=== PATIENT | female | born 1930 | race Caucasian/White ===

== ENCOUNTER 2016-11-13 22:15 | Emergency (ER) | payer OTHER, MEDICAID ==
[2016-11-13] MEDS ORDERED: fentaNYL 100 MCG/2 ML INJ IVP ONE ×2 (22:16→22:28)
--- NOTE | 2016-11-13 22:24 | EDPHY ---
H & P - Medical/Surgical History Hx Asthma: No Hx Chronic Respiratory Disease: No Hx Diabetes: No Hx Cardiac Disease: No Hx Renal Disease: No Hx Cirrhosis: No Hx Alcoholism: No Hx HIV/AIDS: No Hx Splenectomy or Spleen Trauma: No Other PMH: depression, right hip dislocates, dementia, HTN, arthritis, restless leg syndrome, history of falling. - Social History Smoking Status: Never smoked Time Seen by Provider: 11/13/16 22:16 HPI/ROS: CHIEF COMPLAINT: Suspected right hip dislocation HISTORY OF PRESENT ILLNESS: 86-year-old female arrives by ambulance from [facility] for suspected right hip dislocation. History of recurrent hip dislocation. Was bending over her wheelchair and felt it dislocate. No direct trauma or fall. No paresthesia. REVIEW OF SYSTEMS: A ten point review of systems was performed and is negative with the exception of the items mentioned in the HPI PAST MEDICAL & SURGICAL HISTORY: Recurrent hip dislocation SOCIAL HISTORY:lives at [facility] PHYSICAL EXAM (Prior to examination, patient consented to physical exam, hands were washed and my usual and customary physical exam procedures followed) 1) GENERAL: Well-developed, well-nourished, alert and oriented. Appears to be in no acute distress. 2) HEAD: Normocephalic, atraumatic 3) HEENT: Pupils equal, round, reactive to light bilaterally. Sclera anicteric. 4) NECK: Full range of motion, no meningeal signs. 5) LUNGS: Clear auscultation bilaterally. 6) HEART: Regular rate and rhythm. 7) ABDOMEN: No guarding, no rebound, no focal tenderness, 8) MUSCULOSKELETAL: right lower extremity: Shortened, DP PT pulses present and brisk.. (Sylvia,Alexus Conchis) Constitutional: Initial Vital Signs Temperature (C) 37.2 C 11/13/16 22:19 Heart Rate 67 11/13/16 22:19 Respiratory Rate 18 11/13/16 22:19 Blood Pressure 182/78 H 11/13/16 22:19 O2 Sat (%) 99 11/13/16 22:19 O2 Delivery Mode [Procedural Room Air 4th Post Procedure 3rd] O2 Delivery Mode [Procedural Room Air 3rd] O2 Delivery Mode [Post Non-Rebreather Mask Procedure 2nd] O2 Delivery Mode [Post Non-Rebreather Mask Procedure 1st] O2 Delivery Mode [Procedural Non-Rebreather Mask 1st] O2 Delivery Mode [.Immediate Non-Rebreather Mask Pre-Procedure] O2 Delivery Mode Room Air O2 (L/minute) [Post Procedure 15 2nd] O2 (L/minute) [Post Procedure 15 1st] O2 (L/minute) [Procedural 1st] 15 O2 (L/minute) [.Immediate Pre- 15 Procedure] O2 (L/minute) 2 Allergies/Adverse Reactions: No Known Allergies Allergy (Verified 09/14/16 05:47) Home Medications: Medication Instructions Recorded Acetaminophen [Tylenol 325mg (*)] 650 mg PO Q6 PRN 12/16/15 Cholecalciferol Vit D3 [Vitamin D3 5,000 unit PO Q7D 12/16/15 (*)] Folic Acid 0.8 mg PO DAILY 12/16/15 Magnesium Hydroxide [Milk of 30 ml PO DAILY PRN 12/16/15 Magnesia (*)] PARoxetine HCL [Paxil 20mg (*)] 20 mg PO DAILY 12/16/15 Sennosides/Docusate Sodium 1 tab PO BID 12/16/15 [Senokot-S] oxyCODONE IR [Oxycodone Ir (*)] 2.5 - 5 mg PO Q4 PRN 12/16/15 Fludrocortisone Acetate [Florinef] 0.1 mg PO DAILY #30 tab 12/20/15 Midodrine HCl [Proamatine/Midodrin] 5 mg PO TID@0800,1200,1600 #90 tab 12/20/15 Cephalexin [Keflex] 500 mg PO TID #15 cap 09/14/16 Medical Decision Making Procedures: Procedure: Dislocation reduction. Procedural sedation provided by with 45 mg of propofol fall. The dislocation of the right hip was reduced using traction counter traction technique without complications. Post reduction the patient's neurovascular exam is normal. Post reduction x-ray demonstrates reduction of the joint to the anatomic position. The procedure was performed by Dr. Grande . (Alexus Ward) Other Provider: Independent physician documentation I evaluated and participated in the management of the patient. I also evaluated the patient independently. My co-signature indicates that I have reviewed this chart and I agree with the findings and plan of care as documented. My personal H&P findings include: The patient presents to the ED with a recurrent right hip dislocation. She denies numbness or weakness. She denies additional complaints. She has a history of multiple hip dislocations in the past. PHYSICAL EXAM General Appearance: Alert, no distress Eyes: Pupils equal and round no pallor or injection ENT, Mouth: Mucous membranes moist Respiratory: There are no retractions, lungs are clear to auscultation Cardiovascular: Regular rate and rhythm Gastrointestinal: Abdomen is soft and nontender, no masses, bowel sounds normal Neurological: A&O, normal motor function, normal sensory exam, normal cranial nerves Skin: Warm and dry, no rashes Musculoskeletal: Neck is supple nontender Extremities: Deformity and tenderness noted to the right prosthetic hip Procedure: Conscious sedation. Indication: Prosthetic hip dislocation The patient is an appropriate candidate to tolerate procedural sedation. The patient's vital signs and mental status are appropriate. The risks, benefits and alternatives of the sedation were discussed with the patient. The patient is ASA classification 1. The patient's Mallampati airway score was 1 and the patient did meet the 3-3-2 airway measurements. A time out was completed. The patient was sedated with 45 mg of propofol. The patient was monitored with continuous pulse oximetry, secured entrance monitor and end tidal CO2. There were no complications and no significant hypoxemia. I performed both the sedation and the procedure. The total time I spent at the bedside during the procedural sedation was 16 minutes. The patient was examined after the procedural sedation and has returned to their pre-sedation baseline with normal vital signs and a normal examination. Procedure: Dislocation reduction. The dislocation of the right prosthetic hip dislocation was reduced using counter traction technique without complications. Post reduction the patient's neurovascular exam is normal. Post reduction x-ray demonstrates reduction of the joint to the anatomic position. The procedure was performed by myself. Patient tolerated the procedure well. She will be discharged back to her assisted living facility. (Pedro Pablo Grande) - Data Points Medications Given: Discontinued Medications Fentanyl (Sublimaze) 50 mcg IVP EDNOW ONE Stop: 11/13/16 22:17 Last Admin: 11/13/16 22:20 Dose: 50 mcg Fentanyl (Sublimaze) 50 mcg IVP EDNOW ONE Stop: 11/13/16 22:29 Last Admin: 11/13/16 23:48 Dose: Not Given Propofol (Diprivan) 50 mg IVP EDNOW ONE Stop: 11/13/16 22:54 Last Admin: 11/13/16 23:47 Dose: 50 mg Departure - Departure Disposition: Home, Routine, Self-Care Clinical Impression: Recurrent dislocation of right hip Condition: Good Instructions: Hip Dislocation (ED) Referrals: Charity Bentley MD [Medical Doctor] - 5-7 days, call for appt.
[2016-11-13] MEDS ORDERED: PROPOFOL 200 MG/20 ML VIAL ONE (22:51)
[2016-11-13] MEDS ORDERED: PROPOFOL 200 MG/20 ML VIAL IVP ONE (22:53)
[2016-11-13] MEDS ORDERED: NS 500 ML IV SCH (23:00)
--- NOTE | 2016-11-13 23:52 | DX ---
Right hip, 2 views. History: Follow-up prosthesis dislocation. Comparison examination: September 29, 2016. Findings: Surgical features of bilateral hip arthroplasty are identified without dislocation of the p rosthesis on the right as has been present previously. Extensive lumbar spine instrumentation hardwar e is also noted. Impression: 1. Bilateral hip arthroplasties and prior lumbar spine surgery.
[2016-11-14 00:26] VITALS: BP 150/61; PULSE 62; RESP 14; TEMP 98.1; O2SAT 91
--- NOTE | 2016-11-14 08:44 | DX ---
Hip Technique: AP pelvis and frog-leg right hip. Clinical Indications: Pain Comparison: 09/29/2016 Findings: There is a recurrent superior posterior dislocation of the right hip replacement. The left hip replacement remains in anatomic alignment. No fracture is identified. Impression: Recurrent right posterior hip dislocation.
== END 2016-11-14 00:26 | disposition home or self-care (01) ==
LOC: EDUNIT#
PROC: 0SS9XZZ Reposition Right Hip Joint, External Approach (ICD-10-PCS; principal; 2016-11-13)
DX: M24.451 Recurrent dislocation, right hip (principal); I10 Essential (primary) hypertension
CPT/HCPCS: 27250; 73502; 99152; 99285; J2704; J3010

== ENCOUNTER 2017-03-25 13:48 | Emergency (ER) | payer OTHER, MEDICAID ==
--- NOTE | 2017-03-25 14:15 | EDPHY ---
H & P Stated Complaint: R hip pain post mechanical fall, slipped in shower Time Seen by Provider: 03/25/17 13:59 HPI/ROS: CHIEF COMPLAINT: Right hip pain and deformity following mechanical fall HISTORY OF PRESENT ILLNESS: The patient presents to the ED complaining of acute moderate to severe right hip pain and deformity following a mechanical fall. The patient reportedly slipped on a wet bathroom floor. The patient does have a history of multiple prior prosthetic hip dislocations. The patient has followed up with her regular orthopedic surgeon in [place]. The patient has declined revision surgery. Her last prosthetic hip dislocation was in December of this year. She reports this is her 14th dislocation of the prosthetic hip. She denies acute numbness or weakness. The patient did not strike her head or lose consciousness. She has no complaints of acute headache, neck pain, back pain or additional traumatic injury. The patient has been unable to ambulate since her accident. REVIEW OF SYSTEMS: A comprehensive 10 point review of systems is otherwise negative aside from elements mentioned in the history of present illness. Source: Patient Exam Limitations: No limitations - Personal History Current Tetanus/Diphtheria Vaccine: Unsure Current Tetanus Diphtheria and Acellular Pertussis (TDAP): Unsure - Medical/Surgical History Hx Asthma: No Hx Chronic Respiratory Disease: No Hx Diabetes: No Hx Cardiac Disease: No Hx Renal Disease: No Hx Cirrhosis: No Hx Alcoholism: No Hx HIV/AIDS: No Hx Splenectomy or Spleen Trauma: No Other PMH: depression, right hip dislocates, dementia, HTN, arthritis, restless leg syndrome, history of falling, orthostatic hypotension, arthropathy - Social History Smoking Status: Never smoked - Physical Exam Exam: General Appearance: Elderly female, no acute distress Eyes: Pupils equal and round no pallor or injection ENT, Mouth: Mucous membranes moist Respiratory: There are no retractions, lungs are clear to auscultation Cardiovascular: Regular rate and rhythm Gastrointestinal: Abdomen is soft and nontender, no masses, bowel sounds normal Neurological: GCS 15, 5/5 strength all 4 extremities, cranial nerves grossly intact Skin: Warm and dry, no rashes Musculoskeletal: Mild kyphosis present, no tenderness to palpation noted outside of the right hip Extremities: Right hip held in flexion in internal rotation Constitutional: Initial Vital Signs Temperature (C) 36.4 C 03/25/17 13:56 Heart Rate 76 03/25/17 13:56 Respiratory Rate 17 03/25/17 13:56 Blood Pressure 180/77 H 03/25/17 13:56 O2 Sat (%) 94 03/25/17 13:56 O2 Delivery Mode [Post Room Air Procedure 3rd] O2 Delivery Mode [Post Non-Rebreather Mask Procedure 2nd] O2 Delivery Mode [Post Non-Rebreather Mask Procedure 1st] O2 Delivery Mode [Procedural Non-Rebreather Mask 1st] O2 Delivery Mode Room Air O2 (L/minute) [Post Procedure 15 2nd] O2 (L/minute) [Post Procedure 15 1st] O2 (L/minute) [Procedural 1st] 15 O2 (L/minute) 15 Allergies/Adverse Reactions: No Known Allergies Allergy (Verified 03/25/17 13:53) Home Medications: Medication Instructions Recorded Acetaminophen [Tylenol 325mg (*)] 650 mg PO Q6 PRN 12/16/15 Folic Acid 0.8 mg PO DAILY 12/16/15 Magnesium Hydroxide [Milk of 30 ml PO DAILY PRN 12/16/15 Magnesia (*)] Sennosides/Docusate Sodium 1 tab PO BID 12/16/15 [Senokot-S] Fludrocortisone Acetate [Florinef] 0.1 mg PO DAILY #30 tab 12/20/15 Lexapro 03/25/17 Mirtazapine 03/25/17 Synthroid 03/25/17 Vitamin D3 03/25/17 Medical Decision Making - Diagnostics Imaging Results: Imaging Impressions Hip X-Ray 03/25/17 13:59 Impression: Dislocated right hip arthroplasty. Pelvis X-Ray 03/25/17 14:56 Impression: 1. Reduction in right hip arthroplasty dislocation. Procedures: Procedure: Conscious sedation. Indication: Reduction of prosthetic hip dislocation The patient is an appropriate candidate to tolerate procedural sedation. The patient's vital signs and mental status are appropriate. The risks, benefits and alternatives of the sedation were discussed with the patient. The patient is ASA classification 1. The patient's Mallampati airway score was 1 and the patient did meet the 3-3-2 airway measurements. A time out was completed. The patient was sedated with 30 mg of propofol. The patient was monitored with continuous pulse oximetry, playground monitor and end tidal CO2. There were no complications and no significant hypoxemia. I performed both the sedation and the procedure. The total time I spent at the bedside during the procedural sedation was 15 minutes. The patient was examined after the procedural sedation and has returned to their pre-sedation baseline with normal vital signs and a normal examination. Procedure: Dislocation reduction. Indication: Dislocation The the right prosthetic hip dislocation was reduced in the usual fashion without complications. Post reduction the patient's neurovascular exam is normal. Post reduction x-ray demonstrates reduction of the joint to the anatomic position. The procedure was performed by myself. ED Course/Re-evaluation: The patient presents to the ED with a recurrent right prosthetic hip dislocation. The patient was verbally consented to undergo conscious sedation with propofol. I was able to reduce the hip without complication. 3:30 p.m.: I have reviewed the patient's post reduction x-ray and note reduction of the right prosthetic hip dislocation. The patient continues to be neurologically intact. She has recovered from her conscious sedation without any issues. The patient will be discharged home. She is given customary aftercare instructions and return precautions. Differential Diagnosis: Differential diagnosis considered includes periprosthetic fracture, prosthetic hip dislocation, pelvic fracture, neurovascular injury - Data Points Medications Given: Discontinued Medications Propofol (Diprivan) 30 mg IVP EDNOW ONE Stop: 03/25/17 15:15 Last Admin: 03/25/17 14:53 Dose: 30 mg Departure - Departure Disposition: Home, Routine, Self-Care Clinical Impression: Dislocation of internal right hip prosthesis Qualifiers: Encounter type: initial encounter Qualified Code(s): T84.020A - Dislocation of internal right hip prosthesis, initial encounter Condition: Good Instructions: Hip Dislocation (ED) Additional Instructions: 1. Please take Tylenol as needed for pain. 2. Please return to the ED for severe pain, numbness, weakness, recurrent dislocation or other concerns. Referrals: TRUDI MELENDEZ [Primary Care Provider] - As per Instructions
[2017-03-25] MEDS ORDERED: PROPOFOL 200 MG/20 ML VIAL ONE (14:43)
[2017-03-25] MEDS ORDERED: PROPOFOL 200 MG/20 ML VIAL IVP ONE (15:14)
[2017-03-25 16:11] VITALS: BP 155/74; PULSE 67; RESP 16; TEMP 97.9; O2SAT 96
== END 2017-03-25 16:11 | disposition home or self-care (01) ==
LOC: EDUNIT#
PROC: 0SS9XZZ Reposition Right Hip Joint, External Approach (ICD-10-PCS; principal; 2017-03-25)
DX: T84.020A Dislocation of internal right hip prosthesis, initial encounter (principal); I10 Essential (primary) hypertension; W01.0XXA Fall on same level from slipping, tripping and stumbling without subsequent striking against object, initial encounter; Y79.2 Prosthetic and other implants, materials and accessory orthopedic devices associated with adverse incidents; Y92.002 Bathroom of unspecified non-institutional (private) residence as the place of occurrence of the external cause
CPT/HCPCS: 27265; 72170; 73502; 99152; 99285; J2704

== ENCOUNTER 2017-09-12 10:50 | Emergency (ER) | payer OTHER, MEDICAID ==
[2017-09-12 11:01] VITALS: RESP 16; TEMP 98.2
[2017-09-12] MEDS ORDERED: fentaNYL 100 MCG/2 ML INJ ONE (11:39)
[2017-09-12] MEDS ORDERED: fentaNYL 100 MCG/2 ML INJ IVP ONE (11:40)
[2017-09-12] MEDS ORDERED: KETAMINE 100 MG/10 ML SYR ONE (12:24)
[2017-09-12] MEDS ORDERED: PROPOFOL 200 MG/20 ML VIAL ONE (12:24)
--- NOTE | 2017-09-12 12:28 | EDPHY ---
H & P Time Seen by Provider: 09/12/17 11:19 HPI/ROS: HPI Hip dislocation. 86-year-old female by ambulance from [facility]. She has a history of a right prosthetic hip which has been dislocated multiple times. She has been seen in the emergency department for this issue many times in the past. She is here with her daughter currently. Her daughter tells me that the patient apparently fell out of bed in the staff found her complaining of right hip pain this morning. She denies any other complaint. There is no change in her mental status. No reported loss of consciousness or history of a head injury. ROS: Constitutional: No fever, no chills. No weakness. Eyes: No discharge. No changes in vision. ENT: No sore throat. No nasal congestion or rhinorrhea. Respiratory: No cough. No shortness of breath. Cardiac: No chest pain, no palpitations. Gastrointestinal: No abdominal pain, no vomiting, no diarrhea. Genitourinary: No hematuria. No dysuria or increased frequency with urination. Musculoskeletal: No back pain. No neck pain. As above. Skin: No rashes. Neurological: No headache. No focal weakness or altered sensation. Past medical history: Depression, multiple right hip dislocations, dementia, hypertension, arthritis, orthostatic hypotension, history of multiple falls, restless leg syndrome, arthropathy. Social history: From [facility]. Nonsmoker. No alcohol. Currently here with her daughter. Physical Exam: General Appearance: Alert, no distress. This patient is responding to questions appropriately and in full sentences. This patient appears well- hydrated and well-nourished. Head: Normocephalic atraumatic. Face: Facial bones are stable on palpation. Eyes: Pupils equal and round and reactive to light, no pallor or injection. No lid erythema or edema. ENT, Mouth: Mucous membranes moist. Dentition is intact. No malocclusion of the jaw. No tongue lacerations or abrasions. Pharynx is clear. The bilateral nasal canals are clear. No septal hematoma. Respiratory: There are no retractions, lungs are clear to auscultation with good air movement bilaterally. Chest wall is stable to AP and lateral palpation. Cardiovascular: Regular rate and rhythm. No murmur. Gastrointestinal: Abdomen is soft and nontender, no masses, bowel sounds normal. Neurological: Motor sensory function is intact. Cranial nerves are normal. Cerebellar function intact. Skin: Warm and dry, no rashes. No lacerations, abrasions or contusions. Musculoskeletal: Neck is supple and nontender. The trachea is midline. No midline cervical, thoracic, lumbar or sacral tenderness on palpation. No flank tenderness on palpation. Right lower extremity: Shortened with external rotation relative to the left lower extremity. She is neurovascularly intact in the right lower extremity with normal capillary refill in her toes and palpable dorsalis pedis and posterior tibial pulse. Extremities are symmetrical, full range of motion other than noted. All joints in the bilateral upper and bilateral lower extremities range without pain or impingement other than noted. No tenderness on palpation of the long bones in the bilateral upper and bilateral lower extremities other than noted. Psychiatric: No agitation. No depression. Database: EKG: Imaging: Right hip x-ray series: Significant for a posterior right hip prosthesis dislocation. Interpreted by me. Right hip x-ray series post reduction: Successfully reduced. Normal anatomic alignment. No fracture or hardware abnormality. Interpreted by me. Procedures: Procedural sedation. Indication: Right hip prosthesis dislocation. A pre-sedation evaluation was completed on the patient just prior to the procedure. Patient is an appropriate candidate for procedural sedation with ASA class 1E. Mallampati class I. Patient assessed as 332. The risks of the sedation were discussed including but not limited to dysrhythmia, need for airway intervention or general anesthesia, disability, ; and verbal consent obtained. A timeout was observed and patient's identity confirmed. The patient was sedated with 30 mg of IV ketamine followed by 30 mg of propofol. The patient was monitored with continuous pulse oximetry, capnography , and vacuum forming machine operator. There were no complications and no significant hypoxemia. I remained at the bedside for the sedation. The total time I spent in the procedural sedation was 20 min. Procedure: Dislocation reduction of right hip prosthesis. The right hip was reduced in the usual fashion without complications. Post reduction the patient's neurovascular exam is normal. Post reduction x-ray demonstrates reduction of the joint to the anatomic position. The procedure was performed by myself. Emergency department course: IV placed. She was placed on a monitor. Vital signs reviewed. Plan will be to reduce right hip dislocation for sedation with propofol and ketamine. Please see above. 1:50 p.m., patient re-evaluated. Resting comfortably at this time. Results of post reduction x-rays discussed with her and her daughter. Patient will follow up with her at risk specialist. Return to emergency department precautions discussed with the 2 of them. All their questions were answered. The patient was discharged back to [facility] in good condition. Differential Diagnosis: The differential diagnosis on this patient includes but is not limited to right hip prosthesis. Dislocation of the right hip prosthesis. Head injury, spinal injury, other significant traumatic injury the noted unlikely. This represents a partial list of diagnoses considered. These considerations are based on history, physical exam, past history, reassessment and diagnostic testing. Smoking Status: Never smoked Constitutional: Initial Vital Signs Temperature (C) 36.8 C 09/12/17 11:00 Heart Rate 71 09/12/17 11:00 Respiratory Rate 16 09/12/17 11:00 Blood Pressure 153/81 H 09/12/17 11:00 O2 Sat (%) 93 09/12/17 11:00 O2 Delivery Mode Room Air O2 (L/minute) 10 Allergies/Adverse Reactions: No Known Allergies Allergy (Verified 09/12/17 11:02) Home Medications: Medication Instructions Recorded Acetaminophen [Tylenol 325mg (*)] 650 mg PO Q6 PRN 12/16/15 Magnesium Hydroxide [Milk of 30 ml PO DAILY PRN 12/16/15 Magnesia (*)] Sennosides/Docusate Sodium 1 tab PO BID 12/16/15 [Senokot-S] Lexapro 03/25/17 Mirtazapine 03/25/17 Synthroid 03/25/17 Vitamin D3 03/25/17 Zyprexa 09/12/17 Medical Decision Making - Data Points Medications Given: Discontinued Medications Fentanyl (Sublimaze) 25 mcg IVP EDNOW ONE Stop: 09/12/17 11:41 Last Admin: 09/12/17 11:42 Dose: 25 mcg Ketamine HCl (Ketamine) 30 mg IVP EDNOW ONE Stop: 09/12/17 12:54 Last Admin: 09/12/17 12:53 Dose: 30 mg Propofol (Diprivan) 30 mg IVP EDNOW ONE Stop: 09/12/17 12:54 Last Admin: 09/12/17 12:53 Dose: 30 mg Departure - Departure Disposition: Home, Routine, Self-Care Clinical Impression: Hip dislocation, right Condition: Good Instructions: Hip Dislocation (ED) Additional Instructions: Read and follow provided instructions. Follow-up with your primary care physician or at risk specialist on Friday for re-evaluation to consider revision of your right hip prosthesis. Return to the emergency department for worsening symptoms or other serious concerns. Referrals: NONE *PRIMARY CARE P,. [Primary Care Provider] - As per Instructions
[2017-09-12] MEDS ORDERED: PROPOFOL 200 MG/20 ML VIAL IVP ONE (12:53)
[2017-09-12] MEDS ORDERED: KETAMINE 100 MG/10 ML SYR IVP ONE (12:53)
[2017-09-12 14:14] VITALS: BP 135/66; PULSE 62; O2SAT 92
== END 2017-09-12 14:14 | disposition home or self-care (01) ==
LOC: EDUNIT#
PROC: 0SS9XZZ Reposition Right Hip Joint, External Approach (ICD-10-PCS; principal; 2017-09-12)
DX: T84.020A Dislocation of internal right hip prosthesis, initial encounter (principal); I10 Essential (primary) hypertension; W06.XXXA Fall from bed, initial encounter; Y82.8 Other medical devices associated with adverse incidents
CPT/HCPCS: 27265; 73502; 99285; J2704; J3010

== ENCOUNTER 2017-11-20 10:06 | Emergency (ER) | payer OTHER, MEDICAID ==
--- NOTE | 2017-11-20 10:15 | EDPHY ---
H & P Time Seen by Provider: 11/20/17 10:15 HPI/ROS: CHIEF COMPLAINT: Recurrent right hip dislocation HISTORY OF PRESENT ILLNESS: The patient presents to the ED via paramedics with a presumed recurrent right hip dislocation. 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 She was found in her bed at a [facility] today by her daughter unable to ambulate. The patient appeared to be dry and somewhat dehydrated. The patient denies a history of known fall or trauma. She complains of global weakness. She denies fever, cough or congestion. The patient does report moderate pain in her right hip with attempted ambulation. She denies acute numbness or weakness. REVIEW OF SYSTEMS: A comprehensive 10 point review of systems is otherwise negative aside from elements mentioned in the history of present illness. Source: Patient Exam Limitations: No limitations - Medical/Surgical History Hx Asthma: No Hx Chronic Respiratory Disease: No Hx Diabetes: No Hx Cardiac Disease: No Hx Renal Disease: No Hx Cirrhosis: No Hx Alcoholism: No Hx HIV/AIDS: No Hx Splenectomy or Spleen Trauma: No Other PMH: depression, right hip dislocates, dementia, HTN, arthritis, restless leg syndrome, history of falling, orthostatic hypotension, arthropathy - Social History Smoking Status: Never smoked - Physical Exam Exam: General Appearance: Thin female, deconditioned, no acute distress Head: Atraumatic Eyes: Pupils equal, round, reactive ENT, Mouth: No hemotympanum, no oral trauma, dry mucous membranes Neck: Nontender, trachea midline Respiratory: No chest wall tender, subcutaneous air, lungs clear bilaterally Cardiovascular: Regular rate and rhythm Abdomen: Abdomen is soft and nontender, pelvis stable Skin: No lacerations, No abrasion Back: No midline T/L/S pain Extremities: Right leg held in flexion and internal rotation Neurological: A&Ox3, normal motor function, normal sensory exam Constitutional: Initial Vital Signs Temperature (C) 36.3 C 11/20/17 10:16 Heart Rate 68 11/20/17 10:16 Respiratory Rate 18 11/20/17 10:16 Blood Pressure 118/68 11/20/17 10:16 O2 Sat (%) 92 11/20/17 10:16 O2 Delivery Mode [Post Non-Rebreather Mask Procedure 1st] O2 Delivery Mode [Procedural Non-Rebreather Mask 1st] O2 Delivery Mode [.Immediate Non-Rebreather Mask Pre-Procedure] O2 Delivery Mode Nasal Cannula O2 (L/minute) [Post Procedure 15 1st] O2 (L/minute) [Procedural 1st] 15 O2 (L/minute) [.Immediate Pre- 15 Procedure] O2 (L/minute) 2 Allergies/Adverse Reactions: No Known Allergies Allergy (Verified 09/12/17 11:02) Home Medications: Medication Instructions Recorded Acetaminophen [Tylenol 325mg (*)] 650 mg PO Q6 PRN 12/16/15 Magnesium Hydroxide [Milk of 30 ml PO DAILY PRN 12/16/15 Magnesia (*)] Sennosides/Docusate Sodium 1 tab PO BID 12/16/15 [Senokot-S] Lexapro 03/25/17 Mirtazapine 03/25/17 Synthroid 03/25/17 Vitamin D3 03/25/17 Zyprexa 09/12/17 Medical Decision Making - Diagnostics Imaging Results: Imaging Impressions Pelvis X-Ray 11/20/17 10:18 Impression: 1. Right hip replacement is dislocated superiorly out of the acetabular component of the hip replacement. Pelvis X-Ray 11/20/17 11:37 Impression: 1. Good alignment of right hip replacement postreduction. Procedures: Procedure: Conscious sedation. Indication: Prosthetic hip dislocation The patient is an appropriate candidate to tolerate procedural sedation. The patient's vital signs and mental status are appropriate. The risks, benefits and alternatives of the sedation were discussed with the patient. The patient is ASA classification 2. The patient's Mallampati airway score was 2 and the patient did meet the 3-3-2 airway measurements. A time out was completed. The patient was sedated with 40 mg of IV propofol. The patient was monitored with continuous pulse oximetry, electronic device monitor and end tidal CO2. There were no complications and no significant hypoxemia. I performed both the sedation and the procedure. The total time I spent at the bedside during the procedural sedation was 16 minutes. The patient was examined after the procedural sedation and has returned to their pre-sedation baseline with normal vital signs and a normal examination. Procedure: Dislocation reduction. Indication: Dislocation The right periprosthetic hip dislocation was reduced in the usual fashion without complications. Post reduction the patient's neurovascular exam is normal. Post reduction x-ray demonstrates reduction of the joint to the anatomic position. The procedure was performed by myself. ED Course/Re-evaluation: The patient presents to the ED with a recurrent right prosthetic hip dislocation. The patient was quite dehydrated upon arrival. She was treated with 2 L of normal saline before undergoing conscious sedation with propofol. The patient was verbally consented for this procedure. The patient tolerated the procedure well. The patient recovered in the emergency department. Her daughter would like her to be transfer back to her f[facility]. She is essentially wheelchair-bound at baseline. The patient was tolerating p.o.'s prior to being transferred back to her fdc. Patient was re-evaluated at 12:06 p.m.. She is neurologically intact, vital signs are stable she is in no acute distress. No signs of additional traumatic injury are noted. 1:00 p.m.: The patient will be transferred back to [facility] via ambulance. Differential Diagnosis: Differential diagnosis considered includes hip dislocation, hip fracture, dehydration, metabolic abnormality - Data Points Laboratory Results: Laboratory Results 11/20/17 10:30 11/20/17 10:30 11/20/17 11/20/17 10:30 10:30 WBC 10.24 10^3/uL H 10^3/uL (3.80-9.50) RBC 4.37 10^6/uL 10^6/uL (4.18-5.33) Hgb 12.6 g/dL g/dL (12.6-16.3) Hct 38.4 % % (38.0-47.0) MCV 87.9 fL fL (81.5-99.8) MCH 28.8 pg pg (27.9-34.1) MCHC 32.8 g/dL g/dL (32.4-36.7) RDW 15.1 % % (11.5-15.2) Plt Count 120 10^3/uL L 10^3/uL (150-400) MPV 10.9 fL fL (8.7-11.7) Neut % (Auto) 81.7 % H % (39.3-74.2) Lymph % (Auto) 10.4 % L % (15.0-45.0) [place] % (Auto) 7.0 % % (4.5-13.0) Eos % (Auto) 0.3 % L % (0.6-7.6) Baso % (Auto) 0.2 % L % (0.3-1.7) Nucleat RBC Rel Count 0.0 % % (0.0-0.2) Absolute Neuts (auto) 8.37 10^3/uL H 10^3/uL (1.70-6.50) Absolute Lymphs (auto) 1.06 10^3/uL 10^3/uL (1.00-3.00) Absolute Monos (auto) 0.72 10^3/uL 10^3/uL (0.30-0.80) Absolute Eos (auto) 0.03 10^3/uL 10^3/uL (0.03-0.40) Absolute Basos (auto) 0.02 10^3/uL 10^3/uL (0.02-0.10) Absolute Nucleated RBC 0.00 10^3/uL 10^3/uL (0-0.01) Immature Gran % 0.4 % % (0.0-1.1) Immature Gran # 0.04 10^3/uL 10^3/uL (0.00-0.10) Sodium 147 mEq/L H mEq/L (135-145) Potassium 4.0 mEq/L mEq/L (3.5-5.2) Chloride 107 mEq/L mEq/L (97-110) Carbon Dioxide 26 mEq/l mEq/l (22-31) Anion Gap 14 mEq/L mEq/L (8-16) BUN 39 mg/dL H mg/dL (7-23) Creatinine 0.7 mg/dL mg/dL (0.6-1.0) Estimated GFR > 60 Glucose 183 mg/dL H mg/dL (70-100) Calcium 9.4 mg/dL mg/dL (8.5-10.4) Medications Given: Discontinued Medications Sodium Chloride (Ns) 1,000 mls @ 0 mls/hr IV EDNOW ONE; Wide Open PRN Reason: Protocol Stop: 11/20/17 10:18 Last Admin: 11/20/17 10:34 Dose: 1,000 mls Sodium Chloride (Ns) 1,000 mls @ 0 mls/hr IV EDNOW ONE; Wide Open PRN Reason: Protocol Stop: 11/20/17 11:09 Last Admin: 11/20/17 11:11 Dose: 1,000 mls Propofol (Diprivan) 40 mg IVP EDNOW ONE Stop: 11/20/17 11:40 Last Admin: 11/20/17 11:40 Dose: 40 mg Departure - Departure Disposition: Home, Routine, Self-Care Clinical Impression: Recurrent dislocation of right hip, Dehydration, Dementia Condition: Good Instructions: Hip Dislocation (ED) Additional Instructions: 1. Return to the emergency department for recurrent dislocation, unmanaged pain , fever, vomiting or other concerns. Referrals: DARLINE ESCALONA [Other] - As per Instructions
[2017-11-20 10:17] VITALS: TEMP 97.3
[2017-11-20] MEDS ORDERED: NS 1,000 ML IV ONE ×2 (10:17→11:08)
[2017-11-20 10:43] LABS: PLATELET COUNT 120 10^3/uL (150-400)
[2017-11-20] MEDS ORDERED: PROPOFOL 200 MG/20 ML VIAL ONE (11:16)
[2017-11-20] MEDS ORDERED: PROPOFOL 200 MG/20 ML VIAL IVP ONE (11:39)
--- NOTE | 2017-11-20 12:46 | ASDISCHSUM ---
Discharge Information Plan Status:Detention Return Medically Cleared to Leave: Discharge Date: D/C Disposition:Custodial Facility [facility] D/C Disposition:Home, Routine, Self-Care Projected Discharge Date:11/20/2017 01:00 PM Transportation at D/C:ALS/BLS Discharge Delay Reason: Follow-Up Date:11/20/2017 01:00 PM Discharge Slot: Final Diagnosis:R hip dislocation Placement Information Patient Contact Information Contact Name:HOMERO Relationship:Daughter Address:[address] City:[place] Alternate Phone: [facility]/Zip Code:[place] [address] Email: Financial Information Financial Class:Medicare Primary Plan Desc:MEDICARE OUTPATIENT Primary Plan Number:[id number] Secondary Plan Desc:MEDICA[place] Secondary Plan Number:[id number] Assessment Information Intervention Information
[2017-11-20 13:44] VITALS: BP 135/60; PULSE 60; RESP 18; O2SAT 96
== END 2017-11-20 13:30 | disposition home or self-care (01) ==
LOC: EDUNIT#
PROC: 0SS9XZZ Reposition Right Hip Joint, External Approach (ICD-10-PCS; principal; 2017-11-20)
DX: M24.451 Recurrent dislocation, right hip (principal); E86.9 Volume depletion, unspecified; F03.90 Unspecified dementia, unspecified severity, without behavioral disturbance, psychotic disturbance, mood disturbance, and anxiety; E86.0 Dehydration; I10 Essential (primary) hypertension
CPT/HCPCS: 27265; 72170; 99152; 99285; J2704

== ENCOUNTER 2017-11-26 10:36 | Emergency (ER) | payer MEDICAID, OTHER ==
[2017-11-26 10:42] VITALS: RESP 16; TEMP 99.1
--- NOTE | 2017-11-26 10:42 | EDPHY ---
General Time Seen by Provider: 11/26/17 10:39 Narrative: CHIEF COMPLAINT: Possible right hip dislocation, hip pain HISTORY OF PRESENT ILLNESS: Patient presents by EMS and is seen at time of arrival. She has extensive dementia reportedly baseline. EMS reports that the patient was complaining of pain in the right hip when being rolled in her bed today at [facility]. The staff at the residence were concerned that she dislocated her hip. She is complaining of pain over the right greater trochanter. No fall or injury. No weakness. No numbness or tingling distally as best as can be ascertained. They report no evidence of fall or injury. ESTABLISHED ORTHOPEDIST: Dr. Arroyo REVIEW OF SYSTEMS: Ten systems reviewed and are negative unless otherwise noted in the HPI PAST MEDICAL HISTORY: Extensive. Reviewed. 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 Lives at [facility]. FAMILY HISTORY: EXAMINATION General Appearance: Alert to baseline. No distress. Cardiovascular: Symmetric radial pulses 2+. Symmetric DP pulses 2+. Neurological: Alert to baseline. Sensation is symmetric to the dorsum of the feet and plantar surface of the feet. Skin: Warm and dry, no rash. No petechiae or purpura. No skin breakdown Extremities: Range of motion of the right hip is limited but she does have some flexion extension. Mild tenderness of the right greater trochanter. No pedal edema. Psychiatric: Mood and affect normal DIFFERENTIAL DIAGNOSES: Including but not limited to hip strain, hip fracture, hip dislocation, subluxation MDM: 10:40 a.m. Right hip pain with possible hip dislocation. She does have pain over the greater trochanter. She is unable to fully range the but she does have some flexion at the hip and knee. She is neurovascular intact distally. I have ordered x-ray of the hip and pelvis. 11:00 a.m. My interpretation of the plain film, without the aid of the radiologist, reveals no evidence of dislocation of the hip. I do not appreciate any fracture. Hardware appears to be in place. I am awaiting Radiology interpretation. 11:18 a.m. Patient re-evaluated. I have discussed with her daughter is at bedside now. She reports that the daughter has been seen by orthopedist in [place], Dr. Arroyo. She has been told by a physician patient needs a revision of the right hip, but she has not been well enough to do so. The official radiology interpretation is pending but I informed her that I do not appreciate any fracture dislocation. 12:00 p.m. X-ray has been read negative by radiologist. I was asked to re-evaluated the patient by the RN and the patient's daughter. The daughter was concerned that she does not appear well enough to go. I do feel she is stable for discharge home. She is conversing appropriately with this. She is neuro intact distally. I feel that her appearance is chronic and does not warrant any further emergent care. Her vital signs are well within normal limits at this time. SUPERVISION: Patient was independently examined, but I discussed the case with my secondary supervising physician Dr. Landers ED Precautions: Worsening pain. Erythema, edema, cyanosis, pallor, paresthesia or anesthesia. - Diagnostics Imaging Results: Imaging Impressions Hip X-Ray 11/26/17 10:39 Impression: Postoperative features as detailed above, with no acute fracture or dislocation. - History Smoking Status: Never smoked - Objective Vital Signs: Initial Vital Signs Temperature (C) 99.1 F 11/26/17 10:38 Heart Rate 76 11/26/17 10:38 Respiratory Rate 16 11/26/17 10:38 Blood Pressure 115/64 11/26/17 10:38 O2 Sat (%) 96 11/26/17 10:38 O2 Delivery Mode Room Air Allergies/Adverse Reactions: No Known Allergies Allergy (Verified 09/12/17 11:02) Home Medications: Medication Instructions Recorded Acetaminophen [Tylenol 325mg (*)] 650 mg PO Q6 PRN 12/16/15 Magnesium Hydroxide [Milk of 30 ml PO DAILY PRN 12/16/15 Magnesia (*)] Sennosides/Docusate Sodium 1 tab PO BID 12/16/15 [Senokot-S] Lexapro 03/25/17 Mirtazapine 03/25/17 Synthroid 03/25/17 Vitamin D3 03/25/17 Zyprexa 09/12/17 Medications Given: Discontinued Medications Ibuprofen (Motrin) 400 mg PO EDNOW ONE Stop: 11/26/17 11:45 Last Admin: 11/26/17 11:50 Dose: 400 mg Departure - Departure Disposition: Home, Routine, Self-Care Clinical Impression: Strain of right hip Qualifiers: Encounter type: initial encounter Qualified Code(s): S76.011A - Strain of muscle, fascia and tendon of right hip, initial encounter Condition: Good Instructions: Hip Sprain (ED) Additional Instructions: 1. Contact your established orthopedist at [facility] 2. Contact her primary care physician for outpatient follow-up 3. ED precautions as discussed Referrals: Azam Arroyo [Unknown] - As per Instructions
[2017-11-26] MEDS ORDERED: IBUPROFEN 600 MG TAB PO ONE (11:44)
[2017-11-26] MEDS ORDERED: IBUPROFEN 200 MG TAB PO ONE (11:48)
[2017-11-26 11:52] VITALS: BP 100/60; PULSE 70; O2SAT 94
== END 2017-11-26 12:35 | disposition home or self-care (01) ==
LOC: EDUNIT#
DX: S76.011A Strain of muscle, fascia and tendon of right hip, initial encounter (principal); X58.XXXA Exposure to other specified factors, initial encounter

== ENCOUNTER 2018-03-04 09:52 | Emergency (ER) | payer MEDICAID, OTHER ==
[2018-03-04 10:03] VITALS: BP 107/51
--- NOTE | 2018-03-04 10:04 | EDPHY ---
H & P Time Seen by Provider: 03/04/18 10:02 HPI/ROS: CHIEF COMPLAINT: Sent to ED for evaluation of possible hip dislocation HISTORY OF PRESENT ILLNESS: The patient has a history of multiple prior hip dislocations. She lives at [facility]. Apparently while they were moving her today she developed right hip pain. They were concerned about the possibility of a recurrent dislocation referred her to the ED. In the emergency department, the patient denies any acute pain. She does have a history of dementia and her history is somewhat limited. Her daughter also is accompanying her. The patient has had no recent fever, cough or congestion or history of falling. The patient denies any acute headache, abdominal pain or dysuria. REVIEW OF SYSTEMS: A comprehensive 10 point review of systems is otherwise negative aside from elements mentioned in the history of present illness. Source: Patient, Family - Medical/Surgical History Hx Asthma: No Hx Chronic Respiratory Disease: No Hx Diabetes: No Hx Cardiac Disease: No Hx Renal Disease: No Hx Cirrhosis: No Hx Alcoholism: No Hx HIV/AIDS: No Hx Splenectomy or Spleen Trauma: No Other PMH: depression, right hip dislocates, dementia, HTN, arthritis, restless leg syndrome, history of falling, orthostatic hypotension, arthropathy - Social History Smoking Status: Never smoked - Physical Exam Exam: General Appearance: Elderly female, no acute distress Eyes: Pupils equal and round no pallor or injection ENT, Mouth: Mucous membranes moist Respiratory: There are no retractions, lungs are clear to auscultation Cardiovascular: Regular rate and rhythm Gastrointestinal: Abdomen is soft and nontender, no masses, bowel sounds normal Neurological: 5/5 strength all 4 extremities Skin: Warm and dry, no rashes Musculoskeletal: Neck is supple nontender Extremities: symmetrical, full range of motion Constitutional: Initial Vital Signs Temperature (C) 36.5 C 03/04/18 10:01 Heart Rate 66 03/04/18 10:01 Respiratory Rate 16 03/04/18 10:01 Blood Pressure 107/51 L 03/04/18 10:01 O2 Sat (%) 97 03/04/18 10:01 O2 Delivery Mode Room Air Allergies/Adverse Reactions: No Known Allergies Allergy (Verified 03/04/18 10:04) Home Medications: Medication Instructions Recorded Acetaminophen [Tylenol 325mg (*)] 650 mg PO Q6 PRN 12/16/15 Magnesium Hydroxide [Milk of 30 ml PO DAILY PRN 12/16/15 Magnesia (*)] Sennosides/Docusate Sodium 1 tab PO BID 12/16/15 [Senokot-S] Lexapro 03/25/17 Mirtazapine 03/25/17 Synthroid 03/25/17 Vitamin D3 03/25/17 Zyprexa 09/12/17 Medical Decision Making - Diagnostics Imaging Results: Right hip x-ray: Images reviewed by myself. Negative for fracture or dislocation. Formal interpretation by Radiology is pending. ED Course/Re-evaluation: I reviewed the patient's past medical records. The patient's history is somewhat limited by dementia. I do not appreciate any signs of obvious dislocation based upon her physical examination. Given her age and dementia a x -ray of the hip was ordered. Differential Diagnosis: Differential diagnosis considered includes fracture, sprain, dislocation Departure - Departure Disposition: Home, Routine, Self-Care Clinical Impression: Right hip pain Condition: Good Instructions: Hip Pain (ED) Additional Instructions: 1. Your x-ray demonstrates no evidence of an obvious fracture. 2. Please return to the emergency department for any increasing pain, numbness, weakness or other concerns. 3. Follow up with your primary care provider as scheduled.
== END 2018-03-04 10:37 | disposition home or self-care (01) ==
LOC: EDUNIT#
DX: M25.551 Pain in right hip (principal); I10 Essential (primary) hypertension